=== PATIENT | male | born 1990 | race American Indian/Alaskan Native ===

== ENCOUNTER 2021-04-24 17:10 | Emergency (ER) | payer OTHER ==
[~2021-04-24] VITALS: Ht 175.3 cm; Wt 77.3 kg
[2021-04-24 18:15] LABS: BASO # 0.01 K/mm3 (0.02-0.10); EOS % 2.2 % (0.0-4.0); HEMATOCRIT 41.9 % (42.0-52.0); HEMOGLOBIN 14.3 g/dL (13.5-18.0); MEAN CELL VOLUME 85 fl (78-100); MEAN CORPUSCULAR HEMOGLOBIN 29 pg (27-31); MEAN CORPUSCULAR HGB CONC 34 g/dL (33-37); MONO # 0.92 K/mm3 (0.20-0.80); NEU # 6.09 K/mm3 (1.40-6.50); PLATELET COUNT 258 K/mm3 (130-400); RED BLOOD COUNT 4.91 M/mm3 (4.20-5.60); RED CELL DISTRIBUTION WIDTH 12.1 % (11.5-14.5)
[2021-04-24] MEDS ORDERED: PROMETH-CODEIN 65 ML PO (19:05)
[2021-04-24 19:19] VITALS: BP 147/90
[2021-04-24] MEDS ORDERED: WELLBUTRIN XL300 M1 PO (19:35)
[2021-04-24] MEDS ORDERED: DESYREL 100MG100 MG PO (19:36)
== END 2021-04-24 19:19 | disposition home or self-care (01) ==
LOC: ED 17:10
PROVIDERS: Family Medicine
DX: J40 Bronchitis, not specified as acute or chronic (principal)